=== PATIENT | female | born 1975 | race Caucasian/White ===

== ENCOUNTER 2019-06-08 09:39 | Day surgery (SDC) | payer OTHER ==
[2019-06-08] MEDS ORDERED: PROPOFOL INJ 200 MG/20 ML VIAL IV ONE (14:35)
[2019-06-08] MEDS ORDERED: ONDANSETRON HCL INJ/PF 4 MG/2 ML SDV IV PRN (15:05)
[2019-06-08] MEDS ORDERED: DIPHENHYDRAMINE HCL 50 MG/ML VIAL IV PRN (15:05)
[2019-06-08 16:03] VITALS: BP 123/77
--- NOTE | 2019-06-08 20:17 | Operative Report ---
Operative Report DATE OF SURGERY: 06/08/19 Operative Report: The risks, benefits and alternatives are explained to the patient in detail informed consent is obtained patient is brought to the OR, and propofol provided Colonoscopy is performed to tthe cecum, prep is good some mild inflammation is noted on the right side of the colon some internal hemorrhoids is noted patient also had EGD done gastritis is noted, biopsies are obtained patient is sent back to recovery in good condition PREOPERATIVE DIAGNOSIS: epigastric pain. blood in stools POSTOPERATIVE DIAGNOSIS: right side colon inflammation, s/p biopsy. gastritis , biopsy obtained OPERATION: colonoscopy with biopsy. EGD with biopsy SURGEON: KEY ROSE ANESTHESIA: LMAC TISSUE REMOVED OR ALTERED: as noted above COMPLICATIONS: none ESTIMATED BLOOD LOSS: none INTRAOPERATIVE FINDINGS: as noted above PROCEDURE: Patient tolerated her procedure well did not have any post procedure complications patient is discharged in good condition discharge date: 06/08/19 discharge diet: normal discharge activity: normal patient is instructed to call the office or go to ED if there are any other problems will wait on biopsy 2-3 week follow up will be arranged
== END 2019-06-08 16:00 | disposition home or self-care (01) ==
LOC: OROUT 09:39
PROVIDERS: ATTEND Internal Medicine Gastroenterology
DX: K52.9 Noninfective gastroenteritis and colitis, unspecified (principal); K64.8 Other hemorrhoids; K62.5 Hemorrhage of anus and rectum; K29.50 Unspecified chronic gastritis without bleeding; F17.210 Nicotine dependence, cigarettes, uncomplicated; D64.9 Anemia, unspecified; I20.9 Angina pectoris, unspecified; D56.9 Thalassemia, unspecified; Z13.89 Encounter for screening for other disorder
CPT/HCPCS: 43239; 45380; 36415; 84702; 88305 ×2; 00813; J2704; 813